=== PATIENT | male | born 1980 | race Caucasian/White ===

== ENCOUNTER 2024-06-30 22:28 | Emergency (ER) | payer MEDICAID, SELFPAY ==
[2024-06-30 22:29] VITALS: PULSE 100; RESP 8; O2SAT 100; BMI 27.3
[2024-06-30 22:36] VITALS: BP 147/107; PULSE 98; RESP 24; TEMP 36.9; O2SAT 99
--- NOTE | 2024-06-30 22:43 | PC.NURSE ---
PATIENT WAS BROUGHT TO ER FOR MEDICAL CLEARANCE TO LONG TERM AFTER OVERDOSE ON FENTANYL WHILE OFFICERS ATTEMPTED TO ARREST PATIENT. [facility] AT BEDSIDE.
--- NOTE | 2024-06-30 22:55 | PD.EDOVER ---
ED Overdose RME/HPI General Chief Complaint: Overdose Stated Complaint: OVERDOSE ON FENTANYL Time Seen by Provider: 06/30/24 22:37 Arrival date/time: 06/30/24 22:28 RME / HPI RME / HPI Narrative: Dr. Nicolas?s Main ED Evaluation: 44yo male BRIANNA accompanied by [facility] presents to the ED for an overdose. Per [facility], patient was observed to try to swallow a handful of powdered fentanyl. They administered 2 doses of Narcan 2mg, one at 2130 and another at 2135. EMS states they administered additional Narcan 4mg due to the patient appearing to become altered. Patient states he attempted to overdose on fentanyl and crystal meth. He endorses having chest pain and cough. Denies any other associated symptoms. No known allergies. Related Data Home Medications ?Medication ?Instructions ?Recorded ?Confirmed Benztropine Mesylate 1 mg PO BID ##0 06/02/13 Buspirone * (BUSPAR *) 10 mg PO TID #0 tabs 06/02/13 Sertraline Hcl 150 mg PO QDAY ##0 06/02/13 haloperidol 5 mg tablet 5 mg PO BID ##0 06/02/13 mirtazapine 45 mg tablet 45 mg PO QPM ##0 06/02/13 risperidone 4 mg tablet (Risperdal) 4 mg PO QPM #0 tabs 06/02/13 Previous Rx's ?Medication ?Instructions ?Recorded Propranolol Hcl (Inderal) 20 mg PO Q6HR PRN ANXIETY #28 tabs 06/02/13 acetaminophen 325 mg-DM 10 mg/10 20 ml PO Q4H PRN cold symptoms 07/01/24 mL oral liquid (Robitussin #237 mL Cough-Sore Throat) azithromycin 250 mg tablet 250 mg PO QDAY 6 days #6 tabs 07/01/24 (Zithromax Z-Daniel) ibuprofen 600 mg tablet 600 mg PO Q6H PRN pain #20 tabs 07/01/24 Allergies Allergy/AdvReac Type Severity Reaction Status Date / Time NKA* Allergy Uncoded 10/05/11 23:11 Review of Systems Review of Systems Systems Reviewed: All systems reviewed, normal except as documented Past Medical History Past Medical History CARDIAC: Negative Congestive Heart Failure RESPIRATORY: Negative Chronic Obstructive Pulmonary Disease (COPD) GENITOURINARY: Negative Renal Disease ENDOCRINE: Negative Diabetes Mellitus Type 1 or Diabetes Mellitus Type 2 Social History SMOKING STATUS: Former smoker ED Exam Narrative Physical exam: GENERAL APPEARANCE: alert and oriented x 4, well-developed, well-nourished, no acute distress VITALS: All vitals were reviewed and the pulse ox is % on room air, which is normal according to my interpretation. HEENT: Normocephalic, atraumatic; pupils equal, round, reactive to light; EOMI; mucous membranes pink, moist; oropharynx clear NECK: Supple LUNGS: Coarse breath sounds L>R; no wheezes, no rales, no rhonchi HEART: Regular rate, regular rhythm; normal S1, S2; no murmurs ABDOMEN: non distended; normal BS; soft, no tenderness, no guarding, no rebound; no masses, no organomegaly, no hernia BACK: no CVA tenderness EXTREMITIES: atraumatic; no edema NEUROLOGIC: awake; alert and oriented x4; cranial nerves II-XII grossly intact; no focal sensory or motor deficits PSYCHIATRIC: anxious mood and affect SKIN: warm, dry, normal color; no rashes Course Course Course Narrative: CXR is ordered for determining the etiology of cough. Quality Measures none Orders Category Date Time Status Bedside Blood Glucose NOW Care 06/30/24 23:05 Completed Bedside COVID-19 Antigen Test NOW Care 06/30/24 23:07 Completed Bedside Influenza A&B Antigen Test NOW Care 06/30/24 23:07 Completed Engine Oiler NOW Care 06/30/24 23:05 Completed Continuous Pulse Oximetry NOW Care 06/30/24 23:05 Completed XR chest 1V portable Stat Exams 06/30/24 23:07 Completed XR knee RT 3V Stat Exams 07/01/24 01:07 Completed Acetaminophen Stat Lab 06/30/24 22:50 Completed Alcohol, Blood Medical Stat Lab 06/30/24 22:50 Completed CBC Stat Lab 06/30/24 22:50 Completed Comprehensive Metabolic Panel Stat Lab 06/30/24 22:50 Completed Drug Screen,Urine Stat Lab 07/01/24 00:37 Completed Salicylate Stat Lab 06/30/24 22:50 Completed Sodium Chloride 0.9% 1000 ml [Ns] 1,000 ml Med 06/30/24 23:05 Discontinued IV 999 mls/hr Sodium Chloride 0.9% 1000 ml [Ns] 1,000 ml Med 07/01/24 00:31 Discontinued IV 999 mls/hr Vital Signs Vital signs: Vital Signs Temperature 98.4 F 06/30/24 22:36 Pulse Rate 98 06/30/24 22:36 Respiratory Rate 24 H 06/30/24 22:36 Blood Pressure 147/107 H 06/30/24 22:36 Pulse Oximetry (%) 99 06/30/24 22:36 Oxygen Delivery Method Room Air 06/30/24 22:36 Overdose MDM Narrative MDM Narrative:: Scribe Attestation: 06/30/24 - Monika Hernandez am scribing for and in the presence of Dr. Nicolas. 0106: Patient is now complaining of right knee pain. XR knee ordered. Patient has no signs of opiate overdose after observing him for the last 3 hours. Patient is stable to be discharged to police custody. Patient data External records reviewed:: [facility] previous records (Per chart review, patient has no relevant previous ED visits.) Clinical information provided by:: patient, EMS and law enforcement Social determinants that could affect healthcare access:: substance use Patient has the following chronic illnesses:: none How is presenting disease/condition affected by chronic disease/condition?: no chronic disease Evaluation data The following diagnostics were reviewed and interpreted by me:: lab results, radiology exam(s) and EKG tracing(s) Lab and/or radiology exams considered but not ordered:: none Interpretation Summary: WBC count is elevated at 19.5, CMP is normal, Blood Alcohol is negative, Acetaminophen is negative, Salicyates is normal, according to my interpretation. CXR is negative for any infiltrates or pleural effusions, but does show bronchitis pattern, according to my interpretation. Right knee pain is negative for any fracture, dislocation or foreign body, according to my interpretation. EKG done at 2236, sinus tachycardia, rate of 106, normal axis, no ectopy, no acute ischemia, according to my interpretation. [facility] Report Signed Patient: JUSTIN MOE. Record#: [id number] Birthdate: 1980 Age/Sex: 44 / M Location: [facility] Attending Dr: Ordering Physician: Floyd Nicolas MD Date of Service: 06/30/24 Procedure(s): XR chest 1V portable Accession Number(s): [id number] cc: Josef José MD; Temporary Provider,ED ; Floyd Nicolas MD~ Examination: AP chest single view TECHNIQUE: AP portable semiupright chest single view Exam date and time: June 30, 2024, 11:24 PM Comparison August 14, 2008 INDICATIONS: Coughing today. FINDINGS: Normal heart size No lobar pneumonia. No pulmonary edema. The osseous structures are intact. IMPRESSION: No pneumonia identified Dictated By: Josef José MD Signed By: <Electronically signed by Josef José MD in OV> 06/30/24 1318 Medications / Prescriptions Medications or Prescriptions considered but not ordered:: none Medication administrations:: Medication Administration History Discontinued Medications Sodium Chloride (Ns) 1,000 mls @ 999 mls/hr IV .Q1H1M ONE Stop: 07/01/24 00:05 Last Infusion: 07/01/24 00:40 Dose: Infused Documented By: Admin: 06/30/24 23:18 Dose: 999 mls/hr Documented By: JACQUELYN Sodium Chloride (Ns) 1,000 mls @ 999 mls/hr IV .Q1H1M ONE Stop: 07/01/24 01:31 Last Infusion: 07/01/24 02:05 Dose: Infused Documented By: Admin: 07/01/24 00:49 Dose: 999 mls/hr Documented By: JACQUELYN see above Consultations Consultation(s) initiated? (list below): No Diagnosis Overdose Differential Diagnosis: other (methamphetamine overdose, fentanyl overdose, SI, knee fx, knee sprain) Most likely diagnosis given after review of the tests above:: see clinical impression below Admission Indicated Admission indicated?: not indicated Admission Request Was there a request for admission?: No Disposition Plan Disposition Plan: Discharge Discharge Attestation Discharge Attestation: The patient and all family members were given an opportunity to ask questions and understood the discharge instructions. Discharge instructions specifically effects, indications for sooner follow up or return to the emergency department, and the expected course of current diagnosis. Patient condition: Stable Discharge Plan Plan Patient Disposition: Nursing Home/Court/Law Disposition Comment: Stable for discharge into police custody Patient condition on transfer: Stable Prescriptions/Referrals Prescriptions/Med Rec: New azithromycin [Zithromax Z-Daniel] 250 mg tablet 250 mg PO QDAY 6 Days Qty: 6 0RF Rx Instructions: Take 2 tabs on day 1 followed by 1 tab every day for the following 4 days. Robitussin Cough-Sore Throat 325-10 mg/10 mL liquid 20 ml PO Q4H PRN (Reason: cold symptoms) Qty: 237 0RF ibuprofen 600 mg tablet 600 mg PO Q6H PRN (Reason: pain) Qty: 20 0RF No Action haloperidol 5 MG tablet 5 mg PO BID Qty: 0 risperidone [Risperdal] 4 MG tablet 4 mg PO QPM Qty: 0 mirtazapine 45 MG tablet 45 mg PO QPM Qty: 0 Benztropine Mesylate 1 MG tablet 1 mg PO BID Qty: 0 Buspirone * (BUSPAR *) 10 MG tablet 10 mg PO TID Qty: 0 Sertraline Hcl 100 MG tablet 150 mg PO QDAY Qty: 0 Propranolol Hcl (Inderal) 20 MG tablet 20 mg PO Q6HR PRN (Reason: ANXIETY) Qty: 28 0RF Referrals: Family [facility] [Provider Group] - In 1 week Problem List Clinical Impression: Knee sprain, Bronchitis Patient/Caregiver Discharge Instructions Discharge Activity: activity as tolerated Education Materials: Acute Bronchitis, ED Knee Sprain Additional Instructions: Please return to the emergency department if you have any worsening or any further medical problems and we will help you. Otherwise you should follow-up with your primary care doctor or in the family health care clinic within the next several days. You should wear the knee brace for at least the next several days until your knee feels better. Your x-rays showed that you have bronchitis. I have called in a prescription for antibiotics. Please take them as directed until they are completely gone Print Language: Bengali Stand Alone Forms: Ashley Award Info., Patient Portal Info Letter
--- NOTE | 2024-06-30 23:07 | XR_ITS ---
Examination: AP chest single view TECHNIQUE: AP portable semiupright chest single view Exam date and time: June 30, 2024, 11:24 PM Comparison August 14, 2008 INDICATIONS: Coughing today. FINDINGS: Normal heart size No lobar pneumonia. No pulmonary edema. The osseous structures are intact. IMPRESSION: No pneumonia identified
[2024-06-30] MEDS: SODIUM CHLORIDE 0.9% 1000 ML 1,000 ML 999 ML IV (23:18)
[2024-06-30 23:34] LABS: Basophils # (Auto) 0.1 Thou/mm3 (0.0-0.2); Basophils % (Auto) 0 % (0-2.5); Eosinophils # (Auto) 0.2 Thou/mm3 (0.0-0.5); Eosinophils % (Auto) 1 % (0-10); Hematocrit 45.3 % (41.0-53.0); Hemoglobin 15.5 g/dL (13.5-16.0); Immature Granulocytes % (Auto) 1 % (0-0); Immature Granulocytes Auto 0.09 Thou/mm3 (0.00-0.00); Lymphocytes # (Auto) 2.1 Thou/mm3 (1.0-4.8); Lymphocytes % (Auto) 11 % (10-50); Mean Corpuscular HGB Conc 34.2 g/dl (31.0-37.0); Mean Corpuscular Volume 85 fL (80-100); Monocytes # (Auto) 1.5 Thou/mm3 (0.0-0.8); Monocytes % (Auto) 8 % (0-12); Neutrophils # (Auto) 15.6 Thou/mm3 (1.8-7.7); Neutrophils % (Auto) 80 % (37-80); Nucleated Red Blood Cell % 0 /100 WBC (0); Platelet Count 606 Thou/mm3 (140-440); RDW Standard Deviation 40.4 fL (35.1-43.9); Red Blood Count 5.35 Miln/mm3 (4.50-5.90); White Blood Count 19.5 Thou/mm3 (3.8-10.6)
[2024-07-01 00:01] LABS: Acetaminophen < 2.0 mcg/mL (10.0-20.0); Alanine Aminotransferase 31 U/L (10-49); Albumin, Serum 4.5 gm/dL (3.5-5.0); Albumin/Globulin Ratio 1.4 (1.2-2.2); Alcohol, Blood Medical < 10.0 mg/dL (0-10.0); Alkaline Phosphatase 94 U/L (46-116); Anion Gap 13 (7-16); Aspartate Amino Transferase 52 U/L (0-34); BUN/Creatinine Ratio 8 Ratio (12-20); Blood Urea Nitrogen 7 mg/dL (9-23); Calcium 9.5 mg/dL (8.3-10.6); Calcium (Corrected) 9.5 mg/dL (8.5-10.1); Carbon Dioxide 24.3 mMol/L (20.0-31.0); Chloride 102 mMol/L (98-107); Creatinine (Component) 0.9 mg/dL (0.6-1.3); Estimated Creatinine Clearance 105.8 mL/min (>60); Globulin 3.2 gm/dL (2.3-3.5); Glucose 95 mg/dL (74-106); Osmolality,Calculated 275 (275-295); Potassium 3.5 mMol/L (3.4-5.1); Salicylate < 3.0 mg/dL; Sodium 139 mMol/L (136-145); Total Protein 7.7 gm/dL (5.7-8.2); eGFR > 60 See Note
[2024-07-01 00:39] VITALS: BP 152/98; PULSE 100; RESP 24; TEMP 36.7; O2SAT 96
[2024-07-01] MEDS: SODIUM CHLORIDE 0.9% 1000 ML 1,000 ML 999 ML IV (00:49)
--- NOTE | 2024-07-01 01:07 | XR_ITS ---
Examination: Knee, right , 3 views Technique: Knee AP, lateral, axial 3 views Date and time of exam: July 01, 2024 0118 hours INDICATIONS: Injury to the knee today, knee pain. FINDINGS: No fracture or patellar dislocation No foreign body IMPRESSION: No fracture
[2024-07-01 01:53] VITALS: BP 146/70; PULSE 76; RESP 16; TEMP 36.7; O2SAT 98
[2024-07-01 01:59] LABS: Amphetamine/Methamp Scrn,U Positive (Negative); Barbiturate Screen,Urine Negative (Negative); Benzodiazepines Screen,Urine Negative (Negative); Benzoylecgonine Screen, Ur Negative (Negative); Fentanyl Screen,Urine Positive (Negative); Opiate Screen,Urine Positive (Negative); THC Screen,Urine Negative (Negative)
== END 2024-07-01 02:14 ==
PROVIDERS: Emergency Provider Emergency Medicine
DX: S83.91XA Sprain of unspecified site of right knee, initial encounter (principal); J40 Bronchitis, not specified as acute or chronic; X58.XXXA Exposure to other specified factors, initial encounter
CPT/HCPCS: 36415; 71045; 73562; 80053; 80307; 80320; 80329; 85025; 87400; 87811; 96360; 96361; 99284; J7030; G0480